=== PATIENT | male | born 1955 | race African-American/Black ===

== ENCOUNTER 2022-05-27 03:41 | Emergency (ER) | payer OTHER ==
[2022-05-27] MEDS ORDERED: CEFAZOLIN 2 GM VIAL ONE (03:57)
[2022-05-27] MEDS ORDERED: Boostrix 0.5 ML (Tdap) VIAL (>/=7 yrs of age) ONE (03:57)
[2022-05-27 04:47] LABS: #Eosinphils 0.1 thou/uL (0.0-0.7); #Lymphocytes 1.1 thou/uL (1.20-3.40); #Monocytes 0.6 thou/uL (0.11-0.59); #Neutrophils 9.8 thou/uL (1.40-6.50); %Basophils 0.2 % (0.0-1.0); %Eosinophils 1.2 % (0.0-10.0); %Lymphocytes 9.5 % (21.0-51.0); %Monocytes 5.5 % (0.0-10.0); %Neutrophils 83.6 % (42.0-75.0); Mean Corpuscular Hemoglobin 29.2 pg (27.0-31.0); Mean Corpuscular Volume 85.9 fL (78.0-98.0); Mean Platelet Volume 6.7 fL (7.4-10.4); Platelet Count 273 thou/uL (130-400); RBC Distribution Width 12.4 % (11.5-14.5); White Blood Cell (WBC) Count 11.7 thou/uL (4.8-10.8)
[2022-05-27] MEDS ORDERED: Ondansetron PF 4 MG/2 ML Vial ONE ×2 (04:53→11:53)
[2022-05-27 05:08] LABS: ALT (SGPT) 21 U/L (8-55); AST (SGOT) 17 U/L (5-34); Albumin 4.3 g/dL (3.4-4.8); Alkaline Phosphatase 84 U/L (40-110); Anion Gap 16 mmol/L (10-20); BUN (Urea Nitrogen) 16 mg/dL (8.4-25.7); Bilirubin, Total 0.7 mg/dL (0.2-1.2); Calc. Creatinine Clearance 0 mL/min (70-130); Calcium 9.5 mg/dL (7.8-10.44); Carbon Dioxide 22 mmol/L (23-31); Chloride 107 mmol/L (98-107); Estimated GFR 94; Globulin 3.1 g/dL (2.4-3.5); Glucose 104 mg/dL (80-115); Potassium 3.4 mmol/L (3.5-5.1); Protein, Total 7.4 g/dL (5.8-8.1); Sodium 142 mmol/L (136-145)
[2022-05-27] MEDS ORDERED: Morphine 4 MG/ML VIAL ONE ×2 (06:10→11:53)
[2022-05-27 08:27] LABS: SARS-CoV-2 NAA Rapid Test Not Detected (NotDetected)
== END 2022-05-27 12:03 | disposition short-term general hospital (02) ==
LOC: ERS 03:41
DX: S02.831A Fracture of medial orbital wall, right side, initial encounter for closed fracture (principal); Y04.0XXA Assault by unarmed brawl or fight, initial encounter
CPT/HCPCS: 36415; 70450; 70486; 72125; 80053; 85025; 90471; 90715; 96374; 96375; 96376; J0690; J2270; J2405; U0002